=== PATIENT | male | born 1960 | race Caucasian/White ===

== ENCOUNTER → 2019-11-24 | Outpatient (CLI) | payer OTHER | LOC: LAB.O 11:47 | PROVIDERS: ATTEND Family Medicine | DX: M25.561 Pain in right knee (principal) ==

== ENCOUNTER → 2019-11-24 | Outpatient (CLI) | payer OTHER ==
--- NOTE | 2019-11-24 12:23 | RAD ---
EXAM DESCRIPTION: Pelvis CLINICAL HISTORY: 58 years Male, PAIN IN RIGHT HIP COMPARISON: None. Findings: Two views/radiographs Mild bilateral hip osteoarthritis. No acute fracture or dislocation. No focal soft tissue swelling. Bilateral sacroiliac joint osteophytosis. Degenerative changes noted at the lumbosacral junction. Normal bone mineralization. IMPRESSION: No evidence of acute process. Electronically signed by: Jorge Arellano MD 11/24/2019 12:22 PM [facility]
--- NOTE | 2019-11-24 12:23 | RAD ---
XR KNEE 4 OR MORE VIEWS HISTORY: 58 years Male PAIN IN RIGHT KNEE COMPARISON: May 06, 2012. TECHNIQUE: 4 views of the right knee. FINDINGS: No acute fracture or dislocation observed. Medial and lateral joint compartments appear relatively maintained. Moderate osteophytosis at the lateral compartment. Severe osteophytosis and buttressing at the patellofemoral articulation. There is marked chondrocalcinosis seen throughout the medial and lateral compartments. Multiple calcific intra-articular loose bodies suspected within the right knee joint, including an irregular 1.3 similar calcific density projecting posterior to the right knee joint which may reside within a Stephenson's cyst. Partially calcified soft tissue lesion cannot be excluded radiographically. Suspected small right knee joint effusion. IMPRESSION: Marked chondral calcinosis of the right knee, suggestive of but not specific for CPPD, with tricompartmental osteoarthritic change most pronounced at the patellofemoral articulation. There are also multiple small intra-articular loose bodies and a small right knee joint effusion suspected. Electronically signed by: Ceasar Reynoso MD 11/24/2019 12:21 PM [facility]
== END ==
LOC: RAD 10:34
PROVIDERS: ATTEND Orthopaedic Surgery
DX: M16.0 Bilateral primary osteoarthritis of hip (principal); M11.261 Other chondrocalcinosis, right knee; M17.11 Unilateral primary osteoarthritis, right knee; M23.41 Loose body in knee, right knee

== ENCOUNTER → 2020-02-23 | Outpatient (CLI) | payer OTHER | LOC: LAB.O 12:12 | PROVIDERS: ATTEND Orthopaedic Surgery | DX: Z01.818 Encounter for other preprocedural examination (principal) ==

== ENCOUNTER 2020-03-13 05:49 | Inpatient (IN) | payer OTHER ==
[2020-03-13] MEDS ORDERED: LACTATED RINGERS 1,000 ML BAG IV ONE (06:41)
[2020-03-13] MEDS ORDERED: TRANEXAMIC ACID 1,000 MG/10 ML VIAL IV ONE (06:41)
[2020-03-13] MEDS ORDERED: VANCOMYCIN HCL INJ 1,000 MG VIAL IVPB ONE ×3 (06:52→08:45)
[2020-03-13] MEDS ORDERED: ceFAZolin SODIUM 1 GM VIAL IRRIG ONE (07:57)
[2020-03-13] MEDS ORDERED: ceFAZolin SODIUM 1 GM VIAL INJ ONE ×2 (07:58→08:45)
[2020-03-13] MEDS ORDERED: BUPIVACAINE LIPOSOME 13.3 MG/ML VIAL INJ ONE ×2 (07:58→08:24)
[2020-03-13] MEDS ORDERED: BUPIVACAINE 0.5% 30 ML VIAL INJ ONE (08:24)
[2020-03-13] MEDS ORDERED: MAGNESIUM HYDROXIDE 30 ML UD PO PRN (09:22)
[2020-03-13] MEDS ORDERED: SODIUM CHLORIDE 0.9% (FLUSH) 10 ML SYG IV PRN (09:22)
[2020-03-13] MEDS ORDERED: ACETAMINOPHEN 325 MG TAB PO PRN (09:22)
[2020-03-13] MEDS ORDERED: PROMETHAZINE HCL INJ 12.5 MG in SODIUM CHLORIDE 0.9% 50ML 50 ML IVPB PRN (09:22)
[2020-03-13] MEDS ORDERED: PROMETHAZINE HCL INJ 25 MG in SODIUM CHLORIDE 0.9% 50ML 50 ML IVPB PRN (09:22)
[2020-03-13] MEDS ORDERED: MORPHINE SULFATE INJ 10 MG/ML VIAL IV PRN (09:22)
[2020-03-13] MEDS ORDERED: BISACODYL SUPPOSITORY 10 MG PR PRN (09:22)
[2020-03-13] MEDS ORDERED: ZOLPIDEM TARTRATE 5 MG TAB PO PRN (09:22)
[2020-03-13] MEDS ORDERED: TEMAZEPAM 15 MG CAP PO PRN (09:22)
[2020-03-13] MEDS ORDERED: BENZOCAINE-MENTH LOZ (CEPACOL) 1 EA LOZ MT PRN (09:22)
[2020-03-13] MEDS ORDERED: NALOXONE HCL INJ 0.4 MG/ML VIAL IV PRN (09:22)
[2020-03-13] MEDS ORDERED: ALUMINUM & MAGNESIUM HYDROXIDE 30 ML UD PO PRN (09:22)
[2020-03-13] MEDS ORDERED: ONDANSETRON INJ 4 MG/2 ML VIAL IV PRN (09:22)
[2020-03-13] MEDS ORDERED: TRANEXAMIC ACID INJ 1,000 MG in SODIUM CHLORIDE 0.9% 100ML 100 ML IVPB ONE (09:22)
[2020-03-13] MEDS ORDERED: MORPHINE SULFATE INJ 10 MG/ML VIAL IM PRN (09:22)
[2020-03-13] MEDS ORDERED: ACETAMINOPHEN 500 MG TAB PO PRN (09:22)
[2020-03-13] MEDS ORDERED: traMADol HCL 50 MG TAB PO PRN (09:22)
[2020-03-13] MEDS ORDERED: IV SET AND CAP CHANGE INJ INJ SCH (09:30)
[2020-03-13] MEDS ORDERED: MORPHINE PCA 1 MG/ML 100 ML BAG IVPB SCH (09:30)
[2020-03-13] MEDS ORDERED: MORPHINE PCA 1 MG/ML 100 ML BAG IVPB ONE (09:40)
--- NOTE | 2020-03-13 09:40 | RAD ---
EXAM DESCRIPTION: Fluoroscopy Up to 1Hr CLINICAL HISTORY: 59 years, Male, RIGHT TKA FINDINGS/IMPRESSION: Intraoperative fluoroscopic images saved by the performing physician demonstrate changes of right knee arthroplasty. Please see procedure report for full details. Fluoroscopy time: 1.1 second Dose: 0.11 mGy Fluoroscopic images: One Electronically signed by: Misael Rosario DO 03/13/2020 9:39 AM CDT
[2020-03-13] MEDS ORDERED: PROPOFOL 200 MG/20 ML VIAL IV ONE (10:00)
[2020-03-13] MEDS ORDERED: HYDROmorphone HCL INJ 2 MG/ML VIAL IV ONE (10:00)
[2020-03-13] MEDS ORDERED: FAMOTIDINE INJ 10 MG/ML VIAL IV ONE (10:00)
[2020-03-13] MEDS ORDERED: KETAMINE HCL 100 MG/ML VIAL IV ONE (10:00)
[2020-03-13] MEDS ORDERED: MIDAZOLAM INJ 5 MG/5 ML VIAL IV ONE (10:00)
[2020-03-13] MEDS ORDERED: diphenhydrAMINE HCL 50 MG/ML VIAL IV ONE (10:00)
[2020-03-13] MEDS ORDERED: DEXAMETHASONE INJ 10 MG/ML VIAL IV ONE (10:00)
[2020-03-13] MEDS ORDERED: MAGNESIUM SULFATE INJ 1 GM/2 ML VIAL IVPB ONE (10:00)
[2020-03-13] MEDS ORDERED: SODIUM CHLORIDE 0.9% 50 ML VIAL INJ ONE (10:00)
[2020-03-13] MEDS ORDERED: EPINEPHrine HCL AMP 1 MG/ML AMP IVPB ONE (10:00)
--- NOTE | 2020-03-13 10:26 | RAD ---
EXAM DESCRIPTION: Knee,Right 1 or 2 Views CLINICAL HISTORY: 59 years Male, TKA TECHNIQUE: 2 views of the right knee were performed. COMPARISON: 11/24/2019 FINDINGS: Changes of right total knee arthroplasty in the interim. Surrounding soft tissue swelling and subcutis emphysema is noted consistent with recent surgical changes. IMPRESSION: Changes of right total knee arthroplasty with expected postsurgical changes in the surrounding soft tissues. Electronically signed by: Imelda Nicolas MD 03/13/2020 10:24 AM CDT
[2020-03-13] MEDS ORDERED: diphenhydrAMINE HCL 50 MG/ML VIAL ONE (12:28)
[2020-03-13] MEDS ORDERED: diphenhydrAMINE HCL 50 MG/ML VIAL IV PRN (12:29)
--- NOTE | 2020-03-13 13:25 | CONS ---
SUPERVISING PHYSICIAN: Guzman Cedillo MD CHIEF COMPLAINT: Right knee pain. HISTORY OF PRESENT ILLNESS: This is a 59-year-old male patient who has a history of osteoarthritis in bilateral knees. He has actually had his left knee replaced in the past. He has tried conservative measures to help relieve the pain in his right knee with minimal results. He requested Dr. Riccardo Gibbons, orthopedic surgeon, for intervention. Today, he was admitted to the hospital to have a right total knee arthroplasty. He had no problems intraoperatively and I am seeing him postoperatively on the Medical/Surgical Floor. PAST MEDICAL HISTORY: 1. Hyperlipidemia on no medications. 2. Bilateral osteoarthritis of the knees. PAST SURGICAL HISTORY: 1. Hernia repair x2. 2. Left knee replacement. 3. Eye surgery. 4. Right trigger thumb. 5. Bilateral eye surgery. 6. Knee scopes to bilateral knees. OUTPATIENT MEDICATIONS: None. ALLERGIES: NO KNOWN DRUG ALLERGIES. FAMILY HISTORY: Positive for complications from surgery, lung cancer, chronic obstructive pulmonary disease, ovarian cancer. SOCIAL HISTORY: He is a assistant boys track coach. He lives in [place]. He is . He has two children. He uses smokeless tobacco and drinks occasionally on a social basis and denies any illicit drug use. REVIEW OF SYSTEMS: Negative except as her history of present illness. PHYSICAL EXAMINATION: VITAL SIGNS: Temperature 97.5. Heart rate 55. Blood pressure 124/84. Respiratory rate 12. O2 saturation 99% on room air. GENERAL: This is a 59-year-old male patient lying in his hospital bed. He is in no acute distress. HEENT: Normocephalic, atraumatic. Pupils are equal and reactive. Oropharynx is clear. NECK: Supple without mass. RESPIRATORY: Essentially clear to auscultation bilaterally. CHEST: There is equal rise and fall of the chest with inspiration and expiration. CARDIOVASCULAR: Regular rate and rhythm. At times, he is slightly bradycardic. GASTROINTESTINAL: Abdomen is soft, nondistended, nontender. Bowel sounds are positive. NEUROLOGIC: Awake, alert and oriented times three. Cranial nerves II-XII are grossly intact as tested. EXTREMITIES: He has a dressing and ice pack to his right knee. Bilateral pedal pulses are palpable at +2. LABORATORY: Urine tox screen is negative. All other labs and films have been reviewed via the EMR. IMPRESSION: 1. Right total knee arthroplasty status post surgical repair by Dr. Riccardo Gibbons, orthopedic surgeon, postoperative day #0. 2. Osteoarthritis of bilateral knees. 3. Hyperlipidemia, presently on no medications. PLAN: We will continue present supportive care. Orthopedic issues will be per Dr. Riccardo Gibbons, orthopedic surgeon. He has no home medications to restart. We will follow patient as needed and treat appropriately. #[id number] [facility]
[2020-03-13] MEDS ORDERED: CALCIUM CARBONATE (ANTACID) 500 MG CHEWABLE TAB PO PRN (17:00)
[2020-03-13] MEDS: ceFAZolin SODIUM 2 GM in SODIUM CHL 0.9% 50ML MIN-BAG+ 50 ML IVPB SCH (17:05)
[2020-03-13] MEDS: CELECOXIB 100 MG CAP PO SCH (17:05)
[2020-03-13] MEDS: VANCOMYCIN HCL INJ 1,000 MG in SODIUM CHLORIDE 0.9% 250ML 250 ML IVPB SCH (17:46)
[2020-03-13] MEDS ORDERED: DOCUSATE CALCIUM 240 MG CAP ONE (19:17)
[2020-03-13] MEDS ORDERED: ENOXAPARIN SODIUM 30 MG/0.3 ML SYG SUBCU ONE (19:18)
[2020-03-13] MEDS ORDERED: DEX 5% W/NACL 0.45% 1000ML 1,000 ML IVS PRN (20:04)
[2020-03-13] MEDS: DOCUSATE CALCIUM 240 MG CAP PO SCH (20:26)
[2020-03-13] MEDS: HYDROcodone 10MG/APAP 325MG 1 EA TAB PO PRN (21:45)
[2020-03-13] MEDS: ENOXAPARIN SODIUM 30 MG/0.3 ML SYG SUBCU SCH (23:03)
[2020-03-14] MEDS: ceFAZolin SODIUM 2 GM in SODIUM CHL 0.9% 50ML MIN-BAG+ 50 ML IVPB SCH ×2 (00:03→08:58)
[2020-03-14] MEDS: HYDROcodone 10MG/APAP 325MG 1 EA TAB PO PRN ×5 (02:59→20:02)
[2020-03-14] MEDS: VANCOMYCIN HCL INJ 1,000 MG in SODIUM CHLORIDE 0.9% 250ML 250 ML IVPB SCH (05:37)
[2020-03-14] MEDS ORDERED: CYCLOBENZAPRINE HCL 5 MG TAB ONE (05:53)
[2020-03-14] MEDS: CYCLOBENZAPRINE HCL 10 MG TAB PO PRN ×2 (05:57→19:11)
[2020-03-14] MEDS: CELECOXIB 100 MG CAP PO SCH ×2 (07:42→16:02)
--- NOTE | 2020-03-14 08:18 | OP ---
DATE OF PROCEDURE: 03/14/20 PREOPERATIVE DIAGNOSIS: 1. Right knee osteoarthritis. POSTOPERATIVE DIAGNOSIS: 1. Right knee osteoarthritis. PROCEDURE: 1. Total knee arthroplasty. SURGEON: Riccardo Gibbons MD. POWER BENDER OPERATOR: Nick Terrell CST, SA-C. ANESTHESIA: Regional anesthesia with sedation. COMPLICATIONS: None. FINDINGS: Severe osteoarthritis of the knee. INDICATION: Mr. Topete has a history of pain associated with arthritis. He has had multiple conservative measures, however, has failed to gain relief. Because of his ongoing pain, he has requested operative intervention. After discussing the risks, benefits and alternatives to that, the patient has given informed consent for total knee arthroplasty. PROCEDURE: The patient was brought to the Operating Room and placed in supine position. General anesthesia was induced and the patient's leg was sterilely prepped and draped. Following prepping and draping, the distal femur was exposed and using an intramedullary guide, the distal femoral cut was made. The appropriate sized cutting block was measured, pinned into place, and the anterior, posterior, and chamfer cuts were made. The ACL was transected and the tibia was subluxed. Both the medial and lateral menisci were removed. An intramedullary guide was used to make the proximal tibial cut. The appropriate sized base plate was placed and a trial polyethylene was placed. The trial femur was placed, the knee was reduced, and the knee was taken through a range of motion. The knee was stable in anterior, posterior, varus and valgus stress. The patella tracked anatomically without evidence of subluxation or dislocation. After trialing, the trial components were removed and the bony surfaces were thoroughly irrigated with saline. Following irrigation, the surfaces were dried and the final components were cemented into place. The excess cement was removed and the remaining cement was allowed to cure. The knee was again taken through a range of motion to confirm stability. The wound was then irrigated with saline and closure was performed using PDS to approximate the arthrotomy followed by closure of the subcutaneous tissues with a combination of running and interrupted Monocryl sutures. Sterile dressing was placed. The patient was awoken from anesthesia and taken to Recovery. COMPONENTS: Mariza Triathlon knee, size 7 femur, size 7 tibia, 9 mm insert. POSTOPERATIVE PLAN: The patient will be weight-bearing as tolerated on postoperative day 1. [id number]
[2020-03-14] MEDS: MAGNESIUM OXIDE 400 MG TAB PO SCH (08:58)
--- NOTE | 2020-03-14 10:03 | PN ---
DATE: 03/14/20 SUBJECTIVE: David is doing well and is up and pain is well controlled. OBJECTIVE: Afebrile. Vital signs stable. Dressings are clean, dry and intact. ASSESSMENT: Status post total knee arthroplasty. PLAN: The plan at this point is for him to begin physical therapy with weightbearing as tolerated today. #[id number] [facility]
[2020-03-14] MEDS: ENOXAPARIN SODIUM 30 MG/0.3 ML SYG SUBCU SCH ×2 (11:44→21:59)
--- NOTE | 2020-03-14 17:43 | PN ---
SUPERVISING PHYSICIAN: Guzman Cedillo MD DATE: 03/14/20 SUBJECTIVE: The patient is doing well postoperatively. He has had good pain control. He is utilizing his CPM. He has been up to the chair and working with physical therapy where he has had good control of his pain postoperatively. I did discuss discharge planning and he is set to do outpatient therapy through the physical therapy department at [facility], which is already in place. OBJECTIVE: VITAL SIGNS: Temperature 98, blood pressure 140/79, respirations 18, saturation 94% on room air. GENERAL: The patient is resting comfortably on CPM currently. He is in no acute distress. He is alert. CHEST: Lungs are clear to auscultation bilaterally. HEART: Regular rate and rhythm. ABDOMEN: Soft, nontender. Positive bowel sounds. EXTREMITIES: Right knee has a bulky bandage in place with Gregory wrap, currently using the CPM. Distal pulses are strong. Capillary refill is brisk. NEUROLOGIC: Alert and oriented times three. LABORATORY: Postoperative labs show hemoglobin 13.9, hematocrit 42.5. Clean cath urinalysis is pending. RADIOLOGY: No additional studies. ASSESSMENT: 1. Right total knee arthroplasty status post surgical repair by Dr. Riccardo Gibbons, orthopedic surgeon, postoperative day #1. 2. Osteoarthritis of bilateral knees. 3. Hyperlipidemia, presently on no medications. PLAN: We will continue current plan of care with orthopedic management deferred to Dr. Gibbons and physical therapy. I anticipate discharging tomorrow with continuation of his physical therapy efforts through the [facility]. He will go home on Xarelto per protocol for DVT prophylaxis. Until the patient can transition to outpatient management, we will continue to monitor and treat as needed. [facility][id number] [facility]
[2020-03-14] MEDS: DOCUSATE CALCIUM 240 MG CAP PO SCH (20:02)
[2020-03-14] MEDS: SULFA/TRIMETH 800/160 (DS) TAB 1 EA TAB PO SCH (21:59)
[2020-03-15] MEDS: HYDROcodone 10MG/APAP 325MG 1 EA TAB PO PRN ×3 (00:05→08:14)
[2020-03-15] MEDS: CYCLOBENZAPRINE HCL 10 MG TAB PO PRN (03:00)
[2020-03-15] MEDS: CELECOXIB 100 MG CAP PO SCH (07:18)
[2020-03-15 08:09] VITALS: BP 134/72; TEMP 98
[2020-03-15] MEDS: MAGNESIUM OXIDE 400 MG TAB PO SCH (08:13)
[2020-03-15] MEDS: SULFA/TRIMETH 800/160 (DS) TAB 1 EA TAB PO SCH (08:13)
[2020-03-15] MEDS ORDERED: SODIUM CHLORIDE 0.9% (FLUSH) 10 ML SYG IV SCH (09:00)
[2020-03-15 09:47] VITALS: O2SAT 97
--- NOTE | 2020-03-16 08:25 | DS ---
ADMISSION DIAGNOSES: 1. Right total knee arthroplasty status post surgical repair by Dr. Riccardo Gibbons, orthopedic surgeon, postoperative day #0. 2. Osteoarthritis of bilateral knees. 3. Hyperlipidemia, presently on no medications. DISCHARGE DIAGNOSES: 1. Right total knee arthroplasty status post surgical repair by Dr. Riccardo Gibbons, orthopedic surgeon, postoperative day #2. 2. Additional findings of acute cystitis with cultures pending. Patient discharged on Bactrim with some microhematuria with the patient having a history of microhematuria followed by Dr. Cedillo. 3. Osteoarthritis of bilateral knees. 4. Hyperlipidemia, presently on no medications. REASON FOR HOSPITALIZATION: This is a 59-year-old male patient who has a history of osteoarthritis in bilateral knees. He has actually had his left knee replaced in the past. He has tried conservative measures to help relieve the pain in his right knee with minimal results. He requested Dr. Riccardo Gibbons, orthopedic surgeon, for intervention. Today, he was admitted to the hospital to have a right total knee arthroplasty. He had no problems intraoperatively and I am seeing him postoperatively on the Medical/Surgical Floor. HOSPITAL COURSE: Mr. Topete was admitted on 03/13/20 for elective right total knee arthroplasty. He did well intraoperatively and postoperatively. Postoperatively, a urine showed he had some possible acute cystitis which was treated with p.o. Bactrim. The patient was asymptomatic but given postoperative state, was started on antibiotics and will continue with antibiotics on discharge. He did well with his physical therapy, no complicating factors. He was tolerating diet, ambulating with a walker assisted by physical therapy and nurses. He remained on DVT prophylaxis while in the hospital and was showing to be clinically improved well enough to continue with outpatient management. DISCHARGE PHYSICAL ASSESSMENT: VITAL SIGNS: Temperature 98, pulse 78, blood pressure 134/72, respirations 18, oxygen saturation 97% on room air. GENERAL: The patient was showing to be without any acute distress. He was alert. CHEST: Clear to auscultation. HEART: Regular rate and rhythm. ABDOMEN: Soft, non-tender, positive bowel sounds. RIGHT KNEE: Island dressing in place that is clean and dry. Distally, pulse are strong, capillary refill is brisk. NEUROLOGIC: He was awake, alert, and oriented x3. PLAN: Mr. Topete was discharged on 03/15/20 with instructions to followup with Dr. Gibbons as scheduled. He will also need to followup with Dr. Cedillo with regard to the acute cystitis and the hematuria, which has been noted in the past, to make sure this is cleared up and continue to be followed up. He was treated with 10 days of antibiotics with Bactrim. DIET: Advance as tolerate. ACTIVITIES: As per physical therapy. He has a walker. He is to continue with physical therapy [facility] the [facility] as scheduled. WOUND MANAGEMENT: As per Dr. Gibbons's postoperative management. He can shower but no tub bath. DISCHARGE MEDICATIONS: 1. Flexeril 5 mg, 1 to 2 at bedtime as needed for spasms, #15, no refills. 2. Medication for pain management with [place] per Dr. Gibbons's prescription as directed. 3. Bactrim DS b.i.d. for 10 days, no refills. All other home medications were continues prior to hospitalization. DISPOSITION: The patient was discharged home to care of family members. Continue with physical therapy through the [facility] which is schedule. CONDITION ON DISCHARGE: Stable and improved. #[id number] [facility]
[2020-03-16] MEDS ORDERED: MAGNESIUM HYDROXIDE 30 ML UD PO ONE (21:00)
[2020-03-16] MEDS ORDERED: BISACODYL SUPPOSITORY 10 MG PR ONE (21:00)
== END 2020-03-15 11:45 | disposition home or self-care (01) | DRG 470 ==
LOC: AMB 05:49 → MS 10:00
PROVIDERS: ADMIT Orthopaedic Surgery; ATTEND Nurse Practitioner Family
PROC: 0SRC0J9 Replacement of Right Knee Joint with Synthetic Substitute, Cemented, Open Approach (ICD-10-PCS; principal; 2020-03-13 06:52)
DX: M17.11 Unilateral primary osteoarthritis, right knee (principal); N30.01 Acute cystitis with hematuria; Z96.652 Presence of left artificial knee joint; F17.220 Nicotine dependence, chewing tobacco, uncomplicated

== ENCOUNTER → 2020-11-22 | Outpatient (CLI) | payer SELFPAY | LOC: LAB.NP 09:18 | PROVIDERS: ATTEND Orthopaedic Surgery | DX: M25.421 Effusion, right elbow (principal) ==